=== PATIENT | male | born 1960 | race African-American/Black ===

== ENCOUNTER 2017-10-18 00:42 | Emergency (ER) | payer MEDICARE, MEDICAID ==
[~2017-10-18] VITALS: Ht 167.6 cm; Wt 108.9 kg
[~2017-10-18 00:42] MED LIST: AMLODIPINE BESY10 MG PO; ANXIETY MED; BENAZEPRIL HCL20 MG PO; BYSTOLIC 5 MG5 M1 PO; CLONAZEPAM 1 MG1 M1 PO; DIABETES MED; HIGH BP MED; HYDROCODON-ACE1 EAC5 PO; IBUPROFEN 600600 M1 PO; METFORMIN HCL500 MG PO; MOBIC15 MG PO; NORCO 5-325 TA1 EACH PO; PAIN MED; ROBAXIN500 MG PO; TORSEMIDE20 MG PO; ZANTAC 150MG T150 MG PO; ZOCOR20 MG PO
[2017-10-18 01:39] LABS: INFLUENZA A ANTIGEN None Detected (None Detect)
[2017-10-18] MEDS ORDERED: TESSALON PERLE100 MG PO (01:52)
[2017-10-18] MEDS ORDERED: OSELB75 PO (01:52)
[2017-10-18 02:12] VITALS: BP 154/100
== END 2017-10-18 02:14 | disposition home or self-care (01) ==
LOC: M.ERS 00:42
PROVIDERS: Emergency Medicine Emergency Medical Services
DX: J10.1 Influenza due to other identified influenza virus with other respiratory manifestations (principal); E11.9 Type 2 diabetes mellitus without complications; I10 Essential (primary) hypertension

== ENCOUNTER → 2018-12-08 | Outpatient (CLI) | payer OTHER, MEDICAID ==
[~2018-12-08] MED LIST changes: +OSELB75 PO; +TESSALON PERLE100 MG PO
== END ==
LOC: M.CT 15:08 → M.MRI 17:30
DX: M47.22 Other spondylosis with radiculopathy, cervical region (principal); M48.02 Spinal stenosis, cervical region; E11.9 Type 2 diabetes mellitus without complications; Z80.0 Family history of malignant neoplasm of digestive organs

== ENCOUNTER 2019-05-19 05:25 | Emergency (ER) | payer MEDICARE, MEDICAID ==
[~2019-05-19] VITALS: Ht 170.2 cm; Wt 99.5 kg
[2019-05-19 05:45] LABS: ABSOLUTE BASOPHILS 0.1 thou/uL (0.0-0.2); ABSOLUTE EOSINOPHILS 0.1 thou/uL (0.0-0.7); ABSOLUTE MONOCYTES 0.7 thou/uL (0.0-1.2); ABSOLUTE NEUTROPHILS 8.1 thou/uL (1.6-8.1); BASOPHILS 0.9 %; EOSINOPHILS 1.2 %; HEMOGLOBIN 12.4 gm/dL (14.0-18.0); MCH 30.6 pg (26.0-34.0); MCHC 34.3 g/dL (28.0-37.0); MCV 89.1 fL (80.0-100.0); MONOCYTES 6.2 %; MPV 7.6 fl. (7.2-11.1); NUCLEATED RBCS 0 /100WBC; PLATELET COUNT* 388 thou/uL (150-400); POLYS 73.7 %; RBC 4.05 mil/uL (4.50-6.00); RDW-CV 15.1 % (10.5-14.5)
[2019-05-19 06:08] LABS: CALCIUM 8.6 mg/dL (8.5-10.1); CREATININE 1.5 mg/dL (0.6-1.3); POTASSIUM 3.5 mmol/L (3.5-5.1)
[2019-05-19 08:05] VITALS: BP 158/75
== END 2019-05-19 08:10 | disposition short-term general hospital (02) ==
LOC: M.ERS 05:25
PROVIDERS: Emergency Medicine
DX: T78.3XXA Angioneurotic edema, initial encounter (principal); I10 Essential (primary) hypertension; E11.9 Type 2 diabetes mellitus without complications

== ENCOUNTER 2021-07-21 15:25 | Emergency (ER) | payer MEDICARE, MEDICAID ==
[~2021-07-21] VITALS: Ht 167.6 cm; Wt 106.6 kg
[2021-07-21] MEDS ORDERED: FLEXERIL PO (17:43)
[2021-07-21 17:55] VITALS: BP 141/70
== END 2021-07-21 17:56 | disposition home or self-care (01) ==
LOC: M.ERS 15:25
DX: S20.211A Contusion of right front wall of thorax, initial encounter (principal); S39.012A Strain of muscle, fascia and tendon of lower back, initial encounter; S29.019A Strain of muscle and tendon of unspecified wall of thorax, initial encounter; E11.9 Type 2 diabetes mellitus without complications; I10 Essential (primary) hypertension; F17.210 Nicotine dependence, cigarettes, uncomplicated; Z79.899 Other long term (current) drug therapy; W19.XXXA Unspecified fall, initial encounter; Y93.89 Activity, other specified; Y92.89 Other specified places as the place of occurrence of the external cause; Y99.8 Other external cause status

== ENCOUNTER 2021-10-18 11:08 | Emergency (ER) | payer MEDICARE, MEDICAID ==
[~2021-10-18] VITALS: Ht 170.2 cm; Wt 114.7 kg
[~2021-10-18 11:08] MED LIST changes: +FLEXERIL PO
[2021-10-18 11:42] LABS: HEMOGLOBIN 12.5 gm/dL (14.0-18.0); MCH 29.3 pg (26.0-34.0); MCHC 32.9 g/dL (28.0-37.0); MCV 89.1 fL (80.0-100.0); MPV 8.7 fl. (7.2-11.1); NUCLEATED RBCS 0 /100WBC; PLATELET COUNT* 212 thou/uL (150-400); RBC 4.26 mil/uL (4.50-6.00); WBC 13.3 thou/uL (4.0-11.0)
[2021-10-18 12:21] LABS: CALCIUM 8.3 mg/dL (8.5-10.1); CREATININE 1.8 mg/dL (0.6-1.3)
[2021-10-18 12:22] LABS: ABSOLUTE LYMPHOCYTES 1.2 thou/uL (0.8-5.3); ABSOLUTE MONOCYTES 0.5 thou/uL (0.0-1.2); ABSOLUTE NEUTROPHILS 11.6 thou/uL (1.6-8.1); PLATELET ESTIMATE ADEQUATE
[2021-10-18 12:25] LABS: ALBUMIN 3.8 g/dL (3.4-5.0); TOTAL BILIRUBIN 0.4 mg/dL (<0.1-1.0); TOTAL PROTEIN 8.4 g/dL (6.4-8.2)
--- NOTE | 2021-10-18 13:00 | EKG ---
[place] [address] ELECTROCARDIOGRAM REPORT Name: ALMA MCFARLANE III Room: [facility]#: [id number] Admission: 10/18/21 Attend Phys: Discharge: Date of : 64 Date of Service: 10/18/21 1128 Report #: [id number] THIS REPORT FOR: //name// [facility] ED Test Date: 2021-10-18 Test Time: 11:28:29 Pat Name: ALMA MCFARLANE Department: Room: Gender: Reading Teacher: : 1960 Requested By: Yordan Patterson Order Number: [id number] MD: Onur Villasenor Measurements Intervals [place] Rate: 81 P: 45 NV: 196 QRS: 48 QRSD: 107 T: 91 QT: 403 QTc: 468 Interpretive Statements Sinus rhythm Probable left atrial enlargement Incomplete left bundle branch block No previous ECG available for comparison Electronically Signed On 10-18-2021 12:59:48 [employer]TERN [employer] by Onur Villasenor [email or web address] <ELECTRONICALLY SIGNED> By: Chito Villasenor MD, [facility] 10/18/21 1259 1128 1128 Chito Villasenor MD, [facility] /EPI
[2021-10-18 14:04] VITALS: BP 162/72
== END 2021-10-18 14:05 | disposition home or self-care (01) ==
LOC: M.ERS 11:08
PROVIDERS: Emergency Medicine Emergency Medical Services
DX: S00.81XA Abrasion of other part of head, initial encounter (principal); F10.129 Alcohol abuse with intoxication, unspecified; Y90.9 Presence of alcohol in blood, level not specified; E11.9 Type 2 diabetes mellitus without complications; I10 Essential (primary) hypertension; F17.210 Nicotine dependence, cigarettes, uncomplicated; Z79.899 Other long term (current) drug therapy; V00.211A Fall from ice-skates, initial encounter; Y93.89 Activity, other specified; Y92.89 Other specified places as the place of occurrence of the external cause; Y99.8 Other external cause status